=== PATIENT | male | born 1985 | race Caucasian/White ===

== ENCOUNTER 2017-02-15 06:13 | Emergency (ER) | payer OTHER ==
[~2017-02-15] VITALS: Ht 165.1 cm; Wt 63.6 kg
[~2017-02-15 06:13] MED LIST: BEN25; DIVA250T60 PO; TOPI25CA PO
[2017-02-15 06:29] VITALS: Ht 165.1 cm; Wt 63.6 kg
[2017-02-15] MEDS ORDERED: LORAZEPAM 2 MG INJ IV STA (06:41)
[2017-02-15] MEDS ORDERED: SOD CHLORIDE 0.9% 1,000 ML IV STA (06:41)
[2017-02-15] MEDS ORDERED: LORAZEPAM 2 MG INJ IV ONE (07:00)
[2017-02-15] MEDS ORDERED: SOD CHLORIDE 0.9% 1,000 ML IV ONE (07:44)
[2017-02-15 08:54] LABS: ADD SCAN DIFF NO
[2017-02-15 08:57] LABS: ABNORMAL IP MESSAGE 1; BASOPHILS % 0.2 % (0.0-2.0); HEMATOCRIT 38.2 % (42.0-52.0); HEMOGLOBIN 12.8 g/dl (14.0-18.0); LYMPHOCYTES # 1.6 10^3/ul (0.8-2.9); LYMPHOCYTES % 8.3 % (15.0-51.0); MEAN CORPUSCULAR HEMOGLOBIN 32.4 pg (29.0-33.0); MEAN CORPUSCULAR HGB CONC 33.5 g/dl (32.0-37.0); MEAN CORPUSCULAR VOLUME 96.7 fl (82.0-101.0); MEAN PLATELET VOLUME 10.2 fl (7.4-10.4); MONOCYTE # 1.7 10^3/ul (0.3-0.9); MONOCYTES % 8.9 % (0.0-11.0); NEUTROPHIL # 15.3 10^3/ul (1.6-7.5); NEUTROPHILS % 81.9 % (39.0-77.0); PLATELET COUNT 215 10^3/UL (140-415); RED BLOOD COUNT 3.95 10^6/ul (4.70-6.10); RED CELL DISTRIBUTION WIDTH 12.4 % (11.5-14.5); WHITE BLOOD COUNT 18.7 10^3/ul (4.8-10.8)
[2017-02-15 09:13] LABS: ANION GAP 20 (8-16); BLOOD UREA NITROGEN 12 mg/dl (7-20); CALCIUM 8.7 mg/dl (8.4-10.2); CARBON DIOXIDE 18 mmol/L (21-31); CHLORIDE 111 mmol/L (97-110); CREATININE 1.34 mg/dl (0.61-1.24); GLUCOSE 106 mg/dl (70-220); POTASSIUM 3.5 mmol/L (3.5-5.1); SODIUM 145 mmol/L (135-144)
[2017-02-15 09:27] LABS: VALPROATE < 10 ug/ml (50-100)
[2017-02-15 09:49] LABS: CANNABINOIDS Positive (NEGATIVE)
[2017-02-15 09:58] LABS: BARBITURATES Negative (NEGATIVE); BENZODIAZEPINES Negative (NEGATIVE); COCAINE Negative (NEGATIVE); OPIATES Negative (NEGATIVE)
[2017-02-15] MEDS ORDERED: VALPROIC ACID 250 MG CAP PO ONE (10:00)
[2017-02-15 10:47] LABS: ADD UMIC YES; UR BILIRUBIN (Dip) NEGATIVE (NEGATIVE); UR BLOOD (Dip) 1+ (NEGATIVE); UR CLARITY CLEAR (CLEAR); UR COLOR LT. YELLOW (YELLOW); UR GLUCOSE (Dip) NEGATIVE (NEGATIVE); UR KETONES (Dip) NEGATIVE (NEGATIVE); UR LEUKOCYTE ESTERASE (Dip) NEGATIVE (NEGATIVE); UR NITRITE (Dip) NEGATIVE (NEGATIVE); UR TOTAL PROTEIN (Dip) TRACE (NEGATIVE); UR UROBILINOGEN (Dip) 0.2 E.U./dL (0.1-1.0)
[2017-02-15 10:57] LABS: URINE RBCS 0-2 /HPF (0)
[2017-02-15 10:58] LABS: UR URIC ACID CRYSTAL FEW /HPF (NONE SEEN)
--- NOTE | 2017-02-15 11:20 | ERD ---
ER Documentation Chief Complaint Date/Time DATE: 02/15/17 TIME: 11:01 Chief Complaint SEIZURE HPI 32-year-old male with a history of seizure disorder on Topamax and valproic acid brought in by ambulance after a seizure at home. His sister heard him fall. He was in the bathroom. He hit the right side of his head. He was having tonic-clonic activity. It is unclear how long this lasted. Prior to arrival he regained consciousness and was alert. After he was placed in the gurney, the patient had a recurrent tonic seizure. Given the patient's altered mental status at this time, he is unable to give a history. Mom states that he has not been taking his Depakote for 3 days. No recent illnesses. ROS All systems reviewed and are negative except as per history of present illness. Medications Home Meds Reported Medications Diphenhydramine Hcl* (Benadryl*) 25 Mg Cap 09/22/13 Divalproex Sodium* (Depakote*) 250 Mg Tablet.dr, 250 MG PO Q8 03/11/13 Topiramate* (Topamax*) 25 Mg Cap, 100 MG PO BID 03/11/13 Allergies Allergies: Coded Allergies: No Known Allergy (Unverified , 09/22/13) PMhx/Soc Medical and Surgical Hx: pt denies Surgical Hx Hx Miscellaneous Medical Probl: Yes (Seizure disorder) Hx Alcohol Use: No Hx Substance Use: Yes (Marijuana, amphetamines) Hx Tobacco Use: No Smoking Status: Never smoker FmHx Family History: other (Unable to obtain) Physical Exam Vitals Vital Signs Date Time Temp Pulse Resp B/P Pulse Ox O2 Delivery O2 Flow Rate FiO2 02/15/17 11:38 98.5 92 18 130/70 99 Room Air 02/15/17 09:48 120 22 132/79 Room Air 02/15/17 08:53 98.5 127 20 131/86 100 02/15/17 06:29 153 28 141/104 100 Physical Exam Const: Actively seizing Head: No scalp injury. Right lateral brow with contusion and skin abrasion Eyes: Normal Conjunctiva, pupils equal ENT: Perioral cyanosis, dry mucous membranes, tongue checked after seizure no injury. Facial bones stable Neck: Full range of motion..~ No meningismus. Resp: Clear to auscultation bilaterally Cardio: Tachycardic with regular rhythm, no murmurs Abd: Soft, non tender, non distended. Normal bowel sounds Skin: No petechiae or rashes Back: Atraumatic Ext: No cyanosis in extremities or edema Neur: Actively seizing Result Diagram: 02/15/17 0845 02/15/17 0846 Results 24 hrs Laboratory Tests Test 02/15/17 08:45 02/15/17 08:46 02/15/17 09:02 White Blood Count 18.710^3/ul Red Blood Count 3.9510^6/ul Hemoglobin 12.8g/dl Hematocrit 38.2% Mean Corpuscular Volume 96.7fl Mean Corpuscular Hemoglobin 32.4pg Mean Corpuscular Hemoglobin Concent 33.5g/dl Red Cell Distribution Width 12.4% Platelet Count 82367^3/UL Mean Platelet Volume 10.2fl Neutrophils % 81.9% Lymphocytes % 8.3% Monocytes % 8.9% Eosinophils % 0.0% Basophils % 0.2% Nucleated Red Blood Cells % 0.0/100WBC Neutrophils # 15.310^3/ul Lymphocytes # 1.610^3/ul Monocytes # 1.710^3/ul Eosinophils # 0.010^3/ul Basophils # 0.010^3/ul Nucleated Red Blood Cells # 0.010^3/ul Sodium Level 145mmol/L Potassium Level 3.5mmol/L Chloride Level 111mmol/L Carbon Dioxide Level 18mmol/L Anion Gap 20 Blood Urea Nitrogen 12mg/dl Creatinine 1.34mg/dl Glucose Level 106mg/dl Calcium Level 8.7mg/dl Valproic Acid (Depakene) Level < 10ug/ml Urine Color LT. YELLOW Urine Clarity CLEAR Urine pH 5.5 Urine Specific [place] 1.025 Urine Ketones NEGATIVE Urine Nitrite NEGATIVE Urine Bilirubin NEGATIVE Urine Urobilinogen 0.2 E.U./dL Urine Leukocyte Esterase NEGATIVE Urine Microscopic RBC 0-2/HPF Urine Uric Acid Crystals FEW/HPF Urine Granular Casts RARE/HPF Urine Hemoglobin 1+ Urine Glucose NEGATIVE% Urine Total Protein TRACE Urine Opiates Screen Negative Urine Barbiturates Negative Urine Amphetamines Screen Positive Urine Benzodiazepines Screen Negative Urine Cocaine Screen Negative Urine Cannabinoids Positive Current Medications Medications (Trade) Dose Ordered Sig/Kim Route PRN Reason Start Time Stop Time Status Last Admin Dose Admin Lorazepam 2 mg 2 mg ONCE ONCE IV 02/15/17 07:00 02/15/17 07:01 DC Sodium Chloride (NS) 1,000 ml @ 1,000 mls/hr Q1H STAT IV 02/15/17 06:41 02/15/17 07:40 DC 02/15/17 06:41 Lorazepam 2 mg 2 mg ONCE STAT IV 02/15/17 06:41 02/15/17 06:44 DC 02/15/17 06:57 Sodium Chloride (NS) 1,000 ml @ 1,000 mls/hr Q1H ONCE IV 02/15/17 07:44 02/15/17 08:43 DC 02/15/17 08:31 Valproic Acid (Depakene) 500 mg ONCE ONCE PO 02/15/17 10:00 02/15/17 10:01 DC 02/15/17 09:51 Procedures/[facility] EKG: Rate/Rhythm: Sinus tachycardia at 135 QRS, ST, T-waves: No changes consistent w/ acute ischemia Impression: No evidence of ischemia or arrhythmia CT head: No acute abnormality seen Labs CBC: Leukocytosis CMP: Hypernatremia, hyperchloremia, acidosis, elevated creatinine UA: no evidence of infection UDS: Positive amphetamines, positive cannabinoids Valproic acid level non-therapeutic [facility] Patient was given 2 mg Ativan IV for his seizure with resolution. He was noted to be tachycardic in the ED. However he is afebrile with a normal blood pressure. 2 L of IV fluid were given. The patient's mental status started to improve. He was able to give me a history. It seems he used methamphetamines yesterday, which is likely the reason for his tachycardia. His acidosis is likely secondary to dehydration and recent seizure. I have a low suspicion for sepsis or septic shock. As he was somewhat slow to respond when I was talking to him and evidence of head injury, CT head was done to evaluate for any acute intracranial abnormality and was normal. The patient's tachycardia started to improve with IV fluids. His heart rate was in the 90s upon reevaluation. There is no obvious source of infection on exam. I believe the patient is stable for discharge. His eyebrow superficial laceration was cleaned and Steri- Strips were placed. I counseled him on the dangers of using methamphetamines especially having a chronic seizure disorder. I also stressed him the importance of taking his seizure medications as prescribed. His valproic acid level was non-therapeutic. I gave him 500 mg by mouth in the ED. I encouraged him to refill his medications today and return to the ER for any worsening symptoms. Follow-up with PCP was recommended in 2 days. Patient was discharged in a stable condition. Departure Diagnosis: Primary Impression: Recurrent seizures Additional Impressions: Noncompliance with medication regimen Dehydration Methamphetamine abuse Condition: JUMA Mcintyre MD Feb 15, 2017 11:11
--- NOTE | 2017-02-15 11:32 | RADRPT ---
PROCEDURE: CT Brain without contrast. CLINICAL INDICATION: Trauma. Seizure. TECHNIQUE: A CT of the brain without contrast was performed utilizing axial sections from the skul l base through the vertex. The patient was scanned without intravenous contrast enhancement. [place] l and coronal reformatted images were obtained using the data from the axial images. Total exam DLP is 720.23 mGy-cm. CTDIvol is 42.56 mGy. One or more of the following dose reduction techniques we re used: Automated exposure control, adjustment of the mA and/or kV according to patient size, use o f iterative reconstruction technique. COMPARISON: 09/22/2013. FINDINGS: Images are somewhat limited due to patient motion. There is normal fontana-white matter differentiatio n. The ventricles and cisterns are normal. There is no intracranial hemorrhage or space-occupying lesion. There is no skull fracture or lytic lesion. IMPRESSION: 1. Somewhat limited study due to patient motion. 2. No intracranial hemorrhage. 3. Otherwise unremarkable noncontrast CT scan of the brain. 4. No change from 09/22/2013. RPTAT: QQ .Yon Ng MD, MD Date Time Electronically viewed and signed by .Yon Ng MD, on 02/15/2017 11:32 .R/
[2017-02-15 11:38] VITALS: BP 130/70; PULSE 92; RESP 18; TEMP 98.5
== END 2017-02-15 12:26 | disposition home or self-care (01) ==
LOC: E/R 06:13
DX: G40.909 Epilepsy, unspecified, not intractable, without status epilepticus (principal); F15.10 Other stimulant abuse, uncomplicated; R40.2122 Coma scale, eyes open, to pain, at arrival to emergency department; R40.2242 Coma scale, best verbal response, confused conversation, at arrival to emergency department; R40.2342 Coma scale, best motor response, flexion withdrawal, at arrival to emergency department; Z91.14 Patient's other noncompliance with medication regimen
CPT/HCPCS: 36415; 70450; 80048; 80164; 80307; 81001; 85025; 93005; J7030; Z7502; Z7610